=== PATIENT | female | born 1965 ===

== ENCOUNTER 2018-06-27 11:36 | Emergency (ER) | payer BC ==
[2018-06-27 11:48] VITALS: BP 130/69
--- NOTE | 2018-06-27 13:11 | UC ---
Respiratory Complaint HPI - HPI Summary HPI Summary: 2 DAYS OF DRY HACKING COUGH. NO CONGESTION, HEADACHE, FEVER. STATES SHE WAS GIVEN ADVAIR FOR SIMILAR SYMPTOMS ABOUT 20 YEARS AGO WHICH WAS HELPFUL. DENIES ANY HISTORY OF ASTHMA. IS A NONSMOKER. - History of Current Complaint Chief Complaint: UCRespiratory Stated Complaint: BRONCITTIS Time Seen by Provider: 06/27/18 12:47 Hx Obtained From: Patient, Family/Financial Services Officer - Onset/Duration: Gradual Onset, Lasting Days, Still Present Timing: Constant Severity Initially: Moderate Severity Currently: Moderate Pain Intensity: 0 Pain Scale Used: 0-10 Numeric Character: Cough: Nonproductive Aggravating Factors: Nothing Alleviating Factors: Nothing Associated Signs And Symptoms: Positive: Wheezing. Negative: Dyspnea, Fever, Nasal Congestion - Allergies/Home Medications Allergies/Adverse Reactions: Allergies Allergy/AdvReac Type Severity Reaction Status Date / Time No Known Allergies Allergy Verified 06/27/18 11:48 PMH/Surg Hx/FS Hx/Imm Hx Previously Healthy: Yes - Surgical History Surgical History: Yes Surgery Procedure, Year, and Place: wisdom teeth lasix eye surgery benighn growth on uterus removed - Family History Known Family History: Positive: Non-Contributory - Social History Alcohol Use: None Substance Use Type: None Smoking Status (MU): Never Smoked Tobacco Review of Systems All Other Systems Reviewed And Are Negative: Yes Constitutional: Positive: Negative ENT: Positive: Negative Respiratory: Positive: Cough Cardiovascular: Positive: Negative Gastrointestinal: Positive: Negative Physical Exam Triage Information Reviewed: Yes Appearance: Well-Appearing, No Pain Distress, Well-Nourished Vital Signs: Initial Vital Signs Temp 99 F 06/27/18 11:45 Pulse 85 06/27/18 11:45 Resp 17 06/27/18 11:45 BP 130/69 06/27/18 11:45 Pulse Ox 98 06/27/18 11:45 Vital Signs Reviewed: Yes Eyes: Positive: Conjunctiva Clear ENT: Positive: Hearing grossly normal, Pharynx normal, TMs normal Neck: Positive: Supple, Nontender, No Lymphadenopathy Respiratory Exam: Normal Cardiovascular Exam: Normal Abdomen Description: Positive: Soft Musculoskeletal: Positive: No Edema Neurological: Positive: Alert Psychological: Positive: Age Appropriate Behavior Skin: Negative: Rashes Respiratory Course/Dx - Differential Dx/Diagnosis Provider Diagnosis: Acute URI Discharge - Sign-Out/Discharge Documenting (check all that apply): Patient Departure All imaging exams completed and their final reports reviewed: No Studies - Discharge Plan Condition: Stable Disposition: HOME Prescriptions: Albuterol HFA INHALER* [Ventolin HFA Inhaler*] 2 puff INH Q4H PRN #1 mdi PRN Reason: Shortness Of Breath predniSONE TAB* [Deltasone 20 MG TAB*] 40 mg PO DAILY #6 tab Patient Education Materials: Upper Respiratory Infection (ED), Bronchospasm (ED ) Referrals: Heather Teran MD [Primary Care Provider] - If Needed Additional Instructions: YOUR SYMPTOMS ARE LIKELY VIRALLY MEDIATED AND SHOULD RESOLVE ON THEIR OWN WITH TIME. NO INDICATION FOR ANTIBIOTICS AT PRESENT. REST, HYDRATE, OTC MEDS NEEDED. WILL TREAT WITH ALBUTEROL AND PREDNISONE TO HELP WITH AIRWAY INFLAMMATION. FOLLOW-UP WITH YOUR PCP IF YOU ARE NOT IMPROVING OVER THE NEXT 1- 2 WEEKS. I WOULD NOT RECOMMEND ADVAIR FOR TREATMENT OF ACUTE SYMPTOMS THIS IS GENERALLY RESERVED FOR DAILY MAINTENANCE THERAPY FOR ASTHMA. - Billing Disposition and Condition Condition: STABLE Disposition: Home
--- NOTE | 2018-06-28 09:59 | UC ---
- Progress Note Progress Note: PATIENT CALLED AGAIN INQUIRING ABOUT THE POSSIBILITY OF ADVAIR FOR HER URI/ BRONCHOSPASM SYMPTOMS. I SPOKE WITH THE PATIENT AND AGAIN REITERATED THAT ADVAIR IS NOT A RESCUE INHALER AND IS MORE INDICATED FOR MAINTENANCE THERAPY. PATIENT STATES SHE IS BEGINNING TO FEEL A LITTLE BIT BETTER WITH HER ALBUTEROL AND ORAL PREDNISONE AND WONDERS IF MAYBE SHE COULD HAVE A COUPLE MORE DAYS OF PREDNISONE. WILL SEND IN 2 MORE DOSES TO MAKE A 5 DAY TOTAL COURSE OF PREDNISONE. CONTINUE ALBUTEROL PRESCRIBED. FOLLOW-UP IF NOT CONTINUING TO IMPROVE. Course/Dx - Diagnoses Provider Diagnoses: Acute URI Discharge - Sign-Out/Discharge Documenting (check all that apply): Post-Discharge Follow Up All imaging exams completed and their final reports reviewed: No Studies - Discharge Plan Condition: Stable Disposition: HOME Prescriptions: Albuterol HFA INHALER* [Ventolin HFA Inhaler*] 2 puff INH Q4H PRN #1 mdi PRN Reason: Shortness Of Breath predniSONE TAB* [Deltasone 20 MG TAB*] 40 mg PO DAILY #6 tab predniSONE TAB* [Deltasone 20 MG TAB*] 40 mg PO DAILY #4 tab Patient Education Materials: Upper Respiratory Infection (ED), Bronchospasm (ED ) Referrals: Heather Teran MD [Primary Care Provider] - If Needed Additional Instructions: YOUR SYMPTOMS ARE LIKELY VIRALLY MEDIATED AND SHOULD RESOLVE ON THEIR OWN WITH TIME. NO INDICATION FOR ANTIBIOTICS AT PRESENT. REST, HYDRATE, OTC MEDS NEEDED. WILL TREAT WITH ALBUTEROL AND PREDNISONE TO HELP WITH AIRWAY INFLAMMATION. FOLLOW-UP WITH YOUR PCP IF YOU ARE NOT IMPROVING OVER THE NEXT 1- 2 WEEKS. I WOULD NOT RECOMMEND ADVAIR FOR TREATMENT OF ACUTE SYMPTOMS THIS IS GENERALLY RESERVED FOR DAILY MAINTENANCE THERAPY FOR ASTHMA. - Billing Disposition and Condition Condition: STABLE Disposition: Home
== END 2018-06-27 13:10 | disposition home or self-care (01) ==
LOC: UCEAST 11:36
DX: J06.9 Acute upper respiratory infection, unspecified (principal)
CPT/HCPCS: 99212; G0463